=== PATIENT | female | born 2000 | race Caucasian/White ===

== ENCOUNTER 2025-05-30 21:00 | Emergency (ER) | payer OTHER, SELFPAY ==
[2025-05-30 21:01] VITALS: BP 162/100
[2025-05-30 22:34] VITALS: BP 132/87
[2025-05-30 23:00] VITALS: BP 131/84
--- NOTE | 2025-05-30 23:45 | ED.GENMED ---
History of Present Illness
General
Chief Complaint: Back Pain
Source: patient
Exam Limitations: none
Time Seen by Provider: 05/30/25 23:42
Nursing documentation reviewed up to this point in time: agreed with
History of Present Illness
History of Present Illness:
This is a 24-year-old female with a past medical history of connective tissue disorder, fibromyalgia, rheumatoid arthritis on Plaquenil, who presents with worsening lower back pain that started a few weeks ago. Patient reports that she has a
history of chronic pain. She feels it in the middle low back and it radiates to the left side. The pain comes and goes but over the past week has been persistent with any notable exacerbation a few days ago. Patient describes the pain as sharp
and sudden in the back predominantly on the left side radiating to both legs occasionally to the front. Pain worsens when she is walking and exacerbates with activity. She was sent in by her plastic surgery nurse in an attempt to expidite imaging to
potentially to get an MRI. I did explain the patient that we are not able to obtain MRIs in the ER unless it is a neurologic emergency. Patient expressed understanding. Patient does express that she may need x-ray imaging prior to approval for
MRI. Patient was given short course of Medrol which did not help.
She takes cyclobenzaprine and gabapentin chronically which has not helped with the pain. She denies any urinary incontinence, fecal incontinence, inability to ambulate, fevers or chills, recent significant spinal procedures. Patient has not had any
hematuria, urinary frequency.
Review of Systems
Review of Systems
All Other Systems: ROS reviewed and negative except as documented in HPI and ROS
Phy Exam
Physical Exam
Physical Exam:
General: Patient is well appearing and in no acute distress; non-toxic
Skin: Warm and dry, no rashes or lesions
Head: Normocephalic, atraumatic
Eyes: Sclera non-icteric. EOMs intact.
Cardiac: Regular rate
Pulm: Normal respiratory effort, no wheezes, rales, or rhonchi
Abdomen: No abdominal tenderness to palpation
Musculoskeletal: No midline spinal tenderness, paralumbar tenderness noted. Normal gait. 5/5 strength in bilateral lower extremeties.
Neuro: CN II-XII intact, no focal neurologic deficits. DTRs intact.
Psychiatric: Appropriate mood and affect.
Course
Orders/Labs/Results
Orders:
Orders
05/31/25 00:10
Ketorolac [Toradol] 30 mg IM NOW STA
CR Lumbar Spine 2 Or 3 Views Urgent
Comment:
Reason For Exam: back pain
CR Thoracic Spine 3 Views Urgent
Comment:
Reason For Exam: back pain
Vital Signs
Initial and Last Documented VS:
Initial Vital Signs
Temp Pulse Resp BP Pulse Ox
97.9 F 108 20 162/100 98
05/30/25 21:01 05/30/25 21:01 05/30/25 21:01 05/30/25 21:01 05/30/25 21:01
Last Documented Vital Signs
Temp Pulse Resp BP Pulse Ox
97.9 F 108 20 131/84 98
05/30/25 21:01 05/30/25 21:01 05/30/25 21:01 05/30/25 23:00 05/31/25 00:00
MDM/Problems Addressed
Differential Diagnosis Includes:
ddx include RA flare, fibromyalgia, rheumatoid arthritis, spinal stenosis, ankylosing spondylitis, sacroiliitis
MDM/Problems Addressed:
This is a 24-year-old female with a past medical history of connective tissue disorder, fibromyalgia, rheumatoid arthritis on Plaquenil, who presents with worsening lower back pain that started a few weeks ago. Patient reports that she has a
history of chronic pain. Her plastic surgery nurse sent her into the ER for an MRI for her concern for her herniated disc. I did explain to patient that we are unable to get MRIs unless there is an emergency. Today, patient has no signs of or cauda
equina, no signs of neurologic emergency. On exam, she is well-appearing in no acute distress she has a normal gait normal neurologic exam, intact deep tendon reflexes. She has no midline spinal tenderness. Her x-rays were unremarkable.
Considering the length of symptoms with radiation of the pain into the thighs and occasional paresthesias, suspect herniated disc with sciatica, will initiate prednisone, discussed red flag symptoms to return to the ER and advised calling
plastic surgery nurse to schedule sooner follow-up appointment. Patient expressed understanding.
Chronic conditions affecting care:
fibromyalgia, rheumatoid arthritis, connective tissue disorder
*Pulse Oximetry
SaO2: 97
Patient hypoxic: no
*Critical Care Note
Total Time (30-74mins, 75-104mins- exclusive of procedures): Not Applicable
Data Reviewed
Review of Other/Old Records Reveals: Records (no prior ER documents to review; no external medical summary for review)
Source: patient and records
ED Attending Note
-
Portions of this chart may have been created with voice recognition software.� Occasional wrong word or��sound alike� substitutions may have occurred due to the inherent limitations of voice recognition software.
Discharge Plan
Departure
Patient Disposition: Home (Routine Discharge)
Date of Disposition: 05/31/25
Time of Disposition: 00:59
Patient with high blood pressure during this ER visit?: Yes
Condition: Good
Discharge Problem:
Back pain, Sciatica
Instructions: Low Back Pain (DC), Sciatica (DC), BLOOD PRESSURE
Prescriptions:
New
lidocaine 5 % adhesive patch,medicated
1 patch topical DAILY Qty: 15 0RF
prednisone 20 mg tablet
40 mg PO DAILY 5 Days Qty: 10 0RF
Referrals:
Jasper Garcia DO [Family Provider, Rheumatology]
Activity Restrictions/Additional Instructions:
Please follow-up with your plastic surgery nurse. Please call Dr. Garcia's office this week.
PLEASE RETURN TO THE ER SHOULD YOU DEVELOP URINARY FECAL INCONTINENCE, GENITAL NUMBNESS OR TINGLING, INABILITY AMBULATE, FEVERS OR CHILLS, BLOOD IN YOUR URINE, NAUSEA OR VOMITING, OR ANY OTHER SIGNS OR SYMPTOMS WORRISOME TO YOU.
Interventions
Interventions:
*Risk Screen - Suicide Last Done: 05/30/25 21:01
*General Assessment Last Done: 05/31/25 00:00
*Neglect/Abuse Screening Last Done: 05/30/25 21:01
*Nursing Disposition Last Done: 05/31/25 02:19
ED-Musculoskeletal Assessment Last Done: 05/30/25 22:37
Discharge Date and Time
Discharge Date/Time: 05/31/25 02:20
Print Language: AMHARIC
[2025-05-31] MEDS: TORADOL 30 MG IM (00:30)
--- NOTE | 2025-05-31 02:21 | DOWNTIME ---
There was a [employer] Client [employer] Downtime on 05/31/2025 from 0100 to 05/31/2025 at 0215. Downtime documentation of patient's care, including medication administrations, has been reconciled in the electronic record per guidelines. Refer to the
patient's paper chart under the miscellaneous tab to see printed paper medication records and downtime forms.
== END 2025-05-31 02:20 | disposition home or self-care (01) ==
LOC: EMR 21:00
PROVIDERS: EMERGENCY PHYSICIAN Student in an Organized Health Care Education/Training Program; FAMILY PHYSICIAN Internal Medicine Rheumatology
DX: M54.40 Lumbago with sciatica, unspecified side (principal); M06.9 Rheumatoid arthritis, unspecified; M79.7 Fibromyalgia
CPT/HCPCS: 96372; 99284; 72072; 72100